=== PATIENT | male | born 1985 | race Asian ===

== ENCOUNTER 2024-06-25 05:43 | Day surgery (SDC) | payer BC ==
[2024-06-23 08:31] VITALS: BMI 34.2
[2024-06-25] MEDS ORDERED: Bupivacaine/Epinephrine 0.25% 30 ML VIAL ONE (07:02)
[2024-06-25] MEDS ORDERED: Iopamidol 30 ML ONE (07:02)
[2024-06-25] MEDS ORDERED: Glucagon 1 MG/ML KIT ONE (07:02)
[2024-06-25] MEDS ORDERED: Lidocaine 1% PF 5 ML VIAL ONE (07:07)
[2024-06-25] MEDS ORDERED: PROPOFOL 20 ML ONE (07:07)
[2024-06-25] MEDS ORDERED: Rocuronium Bromide 10 MG/ML (10ML VIAL) ONE ×2 (07:07→07:08)
[2024-06-25] MEDS ORDERED: fentaNYL 50 mcg/mL 1 mL Vial ONE ×2 (07:07→08:25)
[2024-06-25] MEDS ORDERED: CEFAZOLIN 2 GM VIAL ONE (07:19)
[2024-06-25] MEDS ORDERED: ePHEDrine Sulfate 50 MG/10 ML VIAL ONE (07:45)
[2024-06-25] MEDS ORDERED: Dexmedetomidine 200 MCG/2 ML VIAL ONE (07:47)
[2024-06-25] MEDS ORDERED: Ketorolac Tromethamine 30 MG (1 mL) VIAL ONE (08:15)
[2024-06-25] MEDS ORDERED: Ondansetron PF 4 MG/2 ML Vial ONE (08:15)
[2024-06-25] MEDS ORDERED: Acetaminophen 500 MG TAB ONE (09:27)
== END 2024-06-25 09:50 | disposition home or self-care (01) ==
LOC: CSHSDC 05:43
PROVIDERS: ATTEND Surgery
PROC: BF50200 Other Imaging of Bile Ducts using Fluorescing Agent, Indocyanine Green Dye, Intraoperative (ICD-10-PCS; principal; 2024-06-25)
PROC: 0FT44ZZ Resection of Gallbladder, Percutaneous Endoscopic Approach (ICD-10-PCS; principal; 2024-06-25)
DX: K80.10 Calculus of gallbladder with chronic cholecystitis without obstruction (principal)
CPT/HCPCS: 47532; 88304; C1889; J1611; J1885; J2405; J2704; J3010; Q9967